=== PATIENT | male | born 1975 | race Caucasian/White ===

== ENCOUNTER → 2017-03-23 06:48 | Outpatient (CLI) | payer SELFPAY ==
--- NOTE | 2017-03-23 06:52 | CT_ITS ---
CT abdomen pelvis wo con CLINICAL INDICATION: Low back pain radiating into the pelvis, enlarged prostate. ORDERING PHYSICIAN: Zander Salinas MD PATIENT AGE: 42 years COMPARISON: None TECHNIQUE: Axial images obtained with sagittal and coronal reformats. PROCEDURE: Oral Contrast: None IV Contrast: None . FINDINGS: The lung bases are clear. The liver, gallbladder, spleen, adrenal glands, and pancreas are unremarkable. There is minimal ectasia of the right renal pelvis and ureter however a definite ureteral stone is not identified. The left kidney and ureter has an unremarkable appearance. No bladder calculi apparent. Unremarkable appendix. No evidence of diverticulitis. There are a few fluid-filled loops of small bowel in the mid and lower abdomen with a few scattered air-fluid levels and small bowel feces sign. No obvious bowel wall thickening. No intestinal obstruction or free air. No acute bony anomalies. IMPRESSION: 1. Minimal ectasia of the right renal collecting system which may be seen with a recently passed stone. Please correlate clinically. 2. Scattered air-fluid levels in the mid abdominal region with small bowel feces sign indicating delayed transit. Enteritis/ileus or partial obstruction is a consideration. If pain persists, consider follow-up with both IV and oral contrast.
== END ==
PROVIDERS: Family Provider Emergency Medicine; PCP Nurse Practitioner Family; Visit Provider Emergency Medicine
DX: R10.9 Unspecified abdominal pain (principal)
CPT/HCPCS: 74176

== ENCOUNTER → 2017-10-17 10:14 | Outpatient (CLI) | payer SELFPAY ==
--- NOTE | 2017-10-17 10:15 | CT_ITS ---
CT chest w con HISTORY: ITS.REASON: lung mass ORDERING PHYSICIAN: Maude Arora PATIENT AGE: 42 years COMPARISON: None TECHNIQUE: Axial images obtained following the administration of 75 mL of Isovue 370 . Sagittal, and coronal reformatted images are also generated and reviewed. All CT scans at the facility use one or more dose reduction, viz: automated exposure control, ma/kV adjustment per patient size (including targeted exams where dose is matched to indication, i.e. head), or iterative reconstruction technique. FINDINGS: The lower pole the left lobe of the thyroid gland is slightly large. There is slight increased soft tissue density within the anterior mediastinum consistent with residual finding tissue. No evidence of aortic aneurysm or dissection. No evidence of central pulmonary embolus. No mediastinal or hilar adenopathy. There are small nodes in the right hilum measuring up to 1.4 cm. There is a calcified granuloma in the left lower lobe anteriorly measuring 1 cm. Calcified nodes are present within the left hilum. There are minimal fibrotic changes or atelectatic changes within the lingula. No central obstructing lesion. No suspicious pulmonary nodules are evident. Upper abdominal images are unremarkable. No acute bony findings. IMPRESSION: 1. No suspicious pulmonary mass is evident. There is a calcified granuloma in the left lower lobe with calcified hilar lymph nodes. Lumbar disc disease. 2. No acute findings.
== END ==
PROVIDERS: Family Provider Emergency Medicine; PCP Nurse Practitioner Family; Visit Provider Nurse Practitioner Family
DX: R91.8 Other nonspecific abnormal finding of lung field (principal)
CPT/HCPCS: 71260; Q9967

== ENCOUNTER → 2021-01-25 14:45 | Outpatient (CLI) | payer SELFPAY ==
--- NOTE | 2021-01-25 14:51 | CT_ITS ---
PROCEDURE INFORMATION: Exam: CT Abdomen And Pelvis Without Contrast Exam date and time: 01/25/2021 2:51 PM Age: 45 years old Clinical indication: Abdominal pain; Localized; Right lower quadrant (rlq); Patient HX: Rlq pain; Additional info: Upper right stomach pain TECHNIQUE: Imaging protocol: Computed tomography of the abdomen and pelvis without contrast. Radiation optimization: All CT scans at this facility use at least one of these dose optimization techniques: automated exposure control; mA and/or kV adjustment per patient size (includes targeted exams where dose is matched to clinical indication); or iterative reconstruction. COMPARISON: [facility] abdomen pelvis wo con 03/23/2017 7:09 AM FINDINGS: Tubes, catheters and devices: None noted. Lungs: Lung bases appear clear. Heart: No significant coronary calcifications. No cardiomegaly. No significant pericardial effusion. Liver: Normal. No mass. Gallbladder and bile ducts: Normal. No calcified stones. No ductal dilation. Pancreas: Normal. No ductal dilation. Spleen: Calcified splenic granulomata. No splenomegaly. Adrenal glands: Normal. No mass. Kidneys and ureters: Normal. No hydronephrosis. Stomach and bowel: Unremarkable. No obstruction. No mucosal thickening. Appendix: Appendix is well visualized. Contrast is seen in the lumen. Diameter is 14 mm, however no significant inflammatory changes are detected. Appendix wall appears prominently thickened compared with previous study 03/23/2017. Intraperitoneal space: Unremarkable. No free air. No significant fluid collection. Retroperitoneal space: No significant retroperitoneal inflammatory changes are noted. Vasculature: Unremarkable. No abdominal aortic aneurysm. Lymph nodes: Unremarkable. No enlarged lymph nodes. Urinary bladder: Unremarkable as visualized. Reproductive: Unremarkable as visualized. Bones/joints: Disc space narrowing L3-L4. No acute fracture. Soft tissues: Unremarkable. IMPRESSION: 1. Prominent thickening of the appendix new since 03/23/2017. 2. Minimal inflammatory change around the appendix, however diameter is 14 mm suspicious for early acute appendicitis.
== END ==
PROVIDERS: PCP Nurse Practitioner Family; Visit Provider Nurse Practitioner Family
DX: R10.9 Unspecified abdominal pain (principal)
CPT/HCPCS: 74176

== ENCOUNTER 2021-01-25 18:22 | Observation (INO) | payer SELFPAY ==
[2021-01-25] VITALS (18 sets, daily range): BP systolic 112–136; BP diastolic 60–97; PULSE 80–98; RESP 16–20; TEMP 36.3–43; O2SAT 92–99; BMI 28.1; BMI 26.7
--- NOTE | 2021-01-25 18:36 | HMH.EDGENADL ---
ED Disposition Clinical Impression: Acute appendicitis Qualifiers: Acute appendicitis type: with localized peritonitis Appendicitis gangrene presence: without gangrene Appendicitis perforation presence: without perforation Appendicitis abscess presence: without abscess Qualified Code(s): K35.30 - Acute appendicitis with localized peritonitis, without perforation or gangrene Disposition: Still a Patient Condition on Discharge: Good Referrals: Maude Arora APRN [Primary Care Provider] - - Critical Care Critical Care Time: No Attestation: On 01/25/21, the high probability of a clinically significant, sudden or life threatening deterioration of the following system(s) required my full and direct attention, intervention and personal management. The time I documented below is in addition to time spent performing reported procedures but includes the following listed in this critical care notation. Medical Decision Making - Medical Records Medical records reviewed: Yes: I reviewed the patient's medical records. MR Comment: Reviewed results of outpatient CT scan abdomen pelvis, see below. Reviewed note from PCP visit today. - Jani Inquiry Pt receiving controlled substance: Yes Jani was queried for this patient: Yes Risks and benefits of using a controlled substance: were not discussed with pt by me Vital Signs: 01/25/21 18:33 Temperature 98.5 F Temperature Source Oral Pulse Rate [Right Brachial] 98 H Respiratory Rate 16 Blood Pressure [Right Arm] 128/79 Blood Pressure Mean [Right Arm] 95 Blood Pressure Source [Right Arm] Automatic Cuff Blood Pressure Position [Right Arm] Supine 02 Sat by Pulse Oximetry 97 Oxygen Delivery Method Room Air Orders (Tests/Meds): ED MEDICATIONS Discontinued Medications Generic Name Dose Route Start Last Admin Trade Name Freq PRN Reason Stop Dose Admin Morphine Sulfate 4 mg 01/25/21 18:42 Morphine 4mg/Ml Syringe IV 01/25/21 18:43 ONCE ONE Ondansetron HCl 4 mg 01/25/21 18:42 Ondansetron 4mg/2ml Vial IV 01/25/21 18:43 ONCE ONE Sodium Chloride 1,000 ml 01/25/21 18:42 Sodium Chloride 0.9% 1000ml Bag IV 01/25/21 18:43 BOLUS ONE ORDERS Category Date Time Status CMP [Comprehensive Metabolic Panel] Stat Lab 01/25/21 18:39 Ordered Complete Blood Count Auto Diff Stat Lab 01/25/21 18:39 Ordered Rapid PCR Covid and Flu A/B Stat Lab 01/25/21 18:39 Ordered - CT Data CT Scan: Abdomen, Pelvis Time Received: 18:[address] Reviewed: Yes: I have viewed the radiologist's interpretation Findings Narrative: Ordering Physician: Zackary Triana APRN Date of Service: 01/25/21 Procedure(s): CT abdomen pelvis wo con Accession Number(s): [id number] cc: Maude Arora APRN; Zackary Triana APRN; Daniel Najera MD~ ADDENDUM Addendum created by Daniel Najera MD on 01/25/2021 6:20:11 PM EST: THIS REPORT CONTAINS FINDINGS THAT MAY BE CRITICAL TO PATIENT CARE. The findings were verbally communicated via telephone conference with Dr Cabrales at 6:19 PM EST on 01/25/2021. The findings were acknowledged and understood. Initial report created on 01/25/2021 6:09:20 PM EST: PROCEDURE INFORMATION: Exam: CT Abdomen And Pelvis Without Contrast Exam date and time: 01/25/2021 2:51 PM Age: 45 years old Clinical indication: Abdominal pain; Localized; Right lower quadrant (rlq); Patient HX: Rlq pain; Additional info: Upper right stomach pain TECHNIQUE: Imaging protocol: Computed tomography of the abdomen and pelvis without contrast. Radiation optimization: All CT scans at this facility use at least one of these dose optimization techniques: automated exposure control; mA and/or kV adjustment per patient size (includes targeted exams where dose is matched to clinical indication); or iterative reconstruction. COMPARISON: [facility] CT abdomen pelvis wo con 03/23/2017 7:09 AM FINDINGS: Tubes, catheters and devices: None note
--- NOTE | 2021-01-25 18:40 | PC.NURSE ---
TAQUERIA WELLS speaking with Dr. Costa
--- NOTE | 2021-01-25 18:42 | PC.NURSE ---
dr covington spoke with dr hurst he wants OR team called in
--- NOTE | 2021-01-25 18:46 | PC.NURSE ---
184: SPOKE WITH Renetta CASTRO RN TO NOTIFY OF ACUTE APPENDICITIS IN ED. 1845: SPOKE WITH MARCOS PRESSLEY TO NOTIFY OF SURGERY. 1846: SPOKE WITH JODI ROLLWAY MAN TO NOTIFY HER OF SURGERY.
[2021-01-25 19:01] LABS: Coronavirus 19, PCR Not Detected (NotDetected); Influenza A, PCR Not Detected (NotDetected); Influenza B, PCR Not Detected (NotDetected)
[2021-01-25 19:02] LABS: Basophils # 0.1 K/mm3 (0-0.2); Basophils % 0.8 % (0.1-2.0); Eosinophils # 0.5 K/mm3 (0.0-0.4); Eosinophils % 5.4 % (0.1-12.0); Hematocrit 46.9 % (42.0-52.0); Hemoglobin 16.1 g/dL (14.1-18.0); Lymphocytes # 3.7 K/mm3 (0.7-4.5); Lymphocytes % 39.5 % (10-50); Mean Corpuscular HGB Conc 34.3 g/dL (31.8-35.4); Mean Corpuscular Hemoglobin 33.5 pg (27.0-31.2); Mean Corpuscular Volume 97.5 fl (80-94); Mean Platelet Volume 7.3 fl (7.4-10.4); Monocytes # 0.6 K/mm3 (0.1-1.0); Monocytes % 6.6 % (1.7-9.3); Neutrophils # 4.5 K/mm3 (1.8-7.8); Neutrophils % 47.6 % (37.0-80.0); Platelet Count 243 K/mm3 (142-424); Red Blood Count 4.81 M/mm3 (4.60-6.20); Red Cell Distribution Width 12.6 % (11.5-17.5); White Blood Count 9.5 K/mm3 (4.8-10.8)
--- NOTE | 2021-01-25 19:11 | PC.NURSE ---
Dr Costa at bedside
[2021-01-25 19:14] LABS: Chloride 104 mmol/L (98-107); Potassium 3.8 mmoL/L (3.5-5.1); Sodium 140 mmol/L (136-145)
[2021-01-25 19:16] LABS: Alanine Aminotransferase 21 U/L (12-78); Blood Urea Nitrogen 11 mg/dl (9-20); Creatinine Clearance Estimated 157 mL/min (50-200); Estimated Glomerular Filt Rate 121 ml/min (>60); GFR (African American) 147 ML/MIN (>60)
[2021-01-25 19:17] LABS: Albumin Level 4.3 g/dl (3.5-5.0); Albumin/Globulin Ratio 1.5 (1.1-1.8); Alkaline Phosphatase 69 U/L (38-126); Anion Gap 11.8 mEq/L (5-15); Aspartate Amino Transferase 26 U/L (17-59); Bilirubin,Total 0.3 mg/dl (0.2-1.3); Calcium 8.8 mg/dl (8.4-10.2); Carbon Dioxide 28 mmol/L (22.0-30.0); Globulin 2.9 g/dL (1.3-3.2); Glucose 95 mg/dl (74-100); Total Protein,Serum 7.2 g/dl (6.3-8.2)
--- NOTE | 2021-01-25 19:23 | HMH.GSHP ---
HPI HPI: Patient is a 45-year-old male. He states that for a couple of months he has had intermittent lower abdominal pain. However, yesterday it became quite severe in the right pelvic region. He was seen by his primary care provider and had an outpatient CT scan ordered. This revealed prominent thickening of the appendix with some minimal inflammatory changes around the appendix with appendiceal diameter of 14 mm consistent with noncomplicated acute appendicitis. [facility] History I have reviewed the patient's past medical history: Yes Medical History: Denies:: Cancer, Diabetes Mellitus Type 1, Diabetes Mellitus Type 2, MRSA *Have you ever received a pneumonia vaccine?: No *Have you received a flu vaccine this season?: No Other Surgeries: Yes: No Previous Surgery Amputation: No Fractures: No - *Social History Smoking Status: Current every day smoker Tobacco Type: cigars, smokeless tobacco Alcohol Intake: never Substance Use Type: denies use *Occupational Status:: unemployed Housing: house Household Members: family *Travel in the last 8 weeks: None Family Hx:: No significant family history Review of Systems - Review of Systems Review of systems:: pertinent systems reviewed and negative unless documented below Meds Home Medications Medication Instructions Recorded Confirmed Type No Known Home Medications 01/25/21 01/25/21 History Allergies Allergy/AdvReac Type Severity Reaction Status Date / Time No Known Allergies Allergy Verified 01/25/21 19:09 Exam Vital signs and Labs for Last 24 Hours: Temp Pulse Resp BP Pulse Ox 98.5 F 98 H 16 128/79 97 01/25/21 18:33 01/25/21 18:33 01/25/21 18:33 01/25/21 18:33 01/25/21 18:33 Laboratory Results - last 24 hr 01/25/21 18:51: WBC 9.5, RBC 4.81, Hgb 16.1, Hct 46.9, MCV 97.5 H, MCH 33.5 H, MCHC 34.3, RDW 12.6, Plt Count 243, MPV 7.3 L, Neut % (Auto) 47.6, Lymph % (Auto) 39.5, [place] % (Auto) 6.6, Eos % (Auto) 5.4, Baso % (Auto) 0.8, Neut # (Auto) 4.5, Lymph # (Auto) 3.7, [place] # (Auto) 0.6, Eos # (Auto) 0.5 H, Baso # (Auto) 0.1 I & O for Last 24 hours: Intake & Output 01/23/21 01/24/21 01/25/21 01/26/21 11:59 11:59 11:59 11:59 Weight 185 lb - Constitutional no acute distress - *Routine HEENT Exam Head: Present: normocephalic Eye: Present: EOMI, PERRL ENT: Present: mucous membranes moist - *Routine Neck Exam Present: supple. Absent: lymphadenopathy - *Routine Respiratory Exam Present: CTA bilaterally - *Routine Cardiovascular Exam Present: RRR - *Routine Abdominal Exam Present: soft, normoactive bowel sounds, tenderness Comments: Tender in the right pelvic area - *Routine Rectal Exam Rectal:: deferred - *Routine Genitalia Exam Genitalia:: deferred - *Routine Extremities Exam Absent: cyanosis, clubbing, edema - *Routine Skin Exam Present: warm. Absent: rash - *Routine Neurological Exam Present: alert, oriented X3 Results - Results Lab Results Last 24 Hours:: Laboratory Results - last 24 hr 01/25/21 18:51: WBC 9.5, RBC 4.81, Hgb 16.1, Hct 46.9, MCV 97.5 H, MCH 33.5 H, MCHC 34.3, RDW 12.6, Plt Count 243, MPV 7.3 L, Neut % (Auto) 47.6, Lymph % (Auto) 39.5, [place] % (Auto) 6.6, Eos % (Auto) 5.4, Baso % (Auto) 0.8, Neut # (Auto) 4.5, Lymph # (Auto) 3.7, [place] # (Auto) 0.6, Eos # (Auto) 0.5 H, Baso # (Auto) 0.1 Assessment and Plan - Assessment and plan all Dx Assessment and Plan for all problems:: Plan for laparoscopic with possibly open appendectomy
--- NOTE | 2021-01-25 19:31 | PC.NURSE ---
Patient transferred to surgery
--- NOTE | 2021-01-25 20:03 | P.PN_ITS ---
[facility] Anesthesia Checklist - Patient Identification Patient Identification: Arm Band - Structural Data Admitted From: Emergency Dept Planned Operative Procedure/s: Laparoscopic Appendectomy Consent for Planned Operative Procedure(s) Verified: Yes Verified Documents: Surgical Consent, History and Physical - NPO Status Verified Time NPO: 11:30 - Additional verifications Anesthesia Reactions: No - Airway Assessment C-Spine Mobility Assessed: Yes (mp2) TMJ Mobility Assessed: Yes Dentition: Good Dentition (lower. Upper Dentures removed) - Neurological Assessment Level of Consciousness: Awake, Alert - Anesthesia Plan Anesthesia Risk discussed: Yes Anesthesia Plan: Verified ASA Class: II (e) Anesthesia Type: General [facility] History I have reviewed the patient's past medical history: Yes Medical History: Denies:: Cancer, Diabetes Mellitus Type 1, Diabetes Mellitus Type 2, MRSA *Have you ever received a pneumonia vaccine?: No *Have you received a flu vaccine this season?: No Anesthesia experience/problems:: nac Other Surgeries: Yes: No Previous Surgery Amputation: No Fractures: No - *Social History Smoking Status: Current every day smoker Tobacco Type: cigars, smokeless tobacco Alcohol Intake: never Substance Use Type: denies use *Occupational Status:: unemployed Housing: house Household Members: family *Travel in the last 8 weeks: None Family Hx:: No significant family history
[2021-01-25 20:20] LABS: Microscopic,Cath URINE MICROSCOPIC (MICROSCOPIC)
--- NOTE | 2021-01-25 20:36 | HMH.OPNOTE ---
Date of procedure: 01/25/21 Pre-op Diagnosis:: Acute appendicitis Post-op Diagnosis:: Same Procedure performed:: Laparoscopic appendectomy Surgeon:: Wilver Costa MD ELECTRICIAN SUBSTATION:: Adan Zhou Anesthesia: GUILLAUME Estimated blood loss (mL): 15 Clinical Note:: Patient is a 45-year-old male. He states that for a couple of months he has had intermittent lower abdominal pain. However, yesterday it became quite severe in the right pelvic region. He was seen by his primary care provider and had an outpatient CT scan ordered. This revealed prominent thickening of the appendix with some minimal inflammatory changes around the appendix with appendiceal diameter of 14 mm consistent with noncomplicated acute appendicitis. Patient was instructed to present to the emergency department where he was evaluated and surgical consultation was obtained. Operative findings:: Patient had an acutely inflamed indurated slightly suppurative appendix. There were adhesions of the mesoappendix to the terminal ileum some of which appeared chronic. Operative note:: Patient was taken to the operating room. He was given preoperative intravenous antibiotics. In the operating room he was placed in a supine position. General anesthesia was induced via endotracheal tube. Kuhn catheter was placed. Abdomen was prepped and draped in the standard surgical fashion. Subumbilical skin incision was made while performing abdominal wall lift Veress needle was inserted. CO2 pneumoperitoneum was achieved to 15 mmHg. 12 mm optical trocar was inserted at the umbilicus. 5 mm trocar was inserted in the suprapubic location and an additional 5 mm trocar was inserted in the right upper abdomen. Patient was positioned in Trendelenburg left side down. Cecum was mobilized and retracted. Appendix was found to be markedly distended and indurated and somewhat tense. It was adherent in the right pelvic area and somewhat adherent to the terminal ileum. Some of these adhesions appeared chronic. Appendix was grasped and delivered anteriorly. The adhesions to terminal ileum epiploic fat or taken down with Metzenbaum dissection. The mesoappendix was carefully divided with BRIANNA ultrasonic harmonic remington with care taken to coagulate the appendiceal artery in the process. There were some retroperitoneal attachments laterally which were incised using BRIANNA ultrasonic robotic remington. Once dissection was carried down to the appendiceal base the appendix was divided at its base with an endoscopic MELVIN linear cutting stapling device. Appendix was placed within an Endo Catch retrieval device and removed from the peritoneal cavity via the umbilical trocar site which required minor extension of the fascial incision for delivery of the thickened distended appendix. Pelvis and pericecal region were irrigated and aspirated until clear. Trochars were removed as CO2 pneumoperitoneum was evacuated. Fascia at the umbilicus was closed with a couple of 0 Vicryl sutures. Local anesthetic was infiltrated. Skin incisions were closed with 4-0 Monocryl in a subcuticular fashion. Steri-Strips and dressings were applied. Condition: stable Disposition: PACU Specimens:: Appendix Complications:: None immediately apparent
--- NOTE | 2021-01-25 20:47 | P.PN_ITS ---
[facility] Anesthesia Record Part I Intake, IV Amount: 1,300 Estimated blood loss (mL): 10 Urine output (mL): 400 Blood Pressure: 130/78 SaO2: 92 Pulse Rate: 89 Respiratory Rate: 16 Temperature: 97.9 F Patient is:: Drowsy, Stable Stable to PACU at:: 20:40
[2021-01-25 21:08] LABS: Appearance,Urine/Cath CLEAR (Clear); Bilirubin,Cath Negative (Negative); Blood, Urine/Cath Negative (Negative); Color,Urine/Cath YELLOW (Yellow); Glucose,Urine/Cath (UA) Negative (Negative); Ketones,Urine/Cath Negative (Negative); Leukocyte Esterase,Cath Negative (Negative); Nitrate,Cath Negative (Negative); PH,Urine/Cath 6.5 (5.0-8.5); Protein,Urine/Cath Negative (Negative); Specific Gravity, Urine/Cath 1.015 (1.005-1.030); Urobilinogen,Cath 0.2 EU/dl (0.2)
--- NOTE | 2021-01-25 21:13 | PC.NURSE ---
Pt arrived to the floor via stretcher at this time.
--- NOTE | 2021-01-25 21:17 | SUR.PHASEI ---
2107-detailed report called to ABRAN Steiner 2109-pt transported to 2nd floor room 207 via stretcher w/yury rails up and left in care of ABRAN Steiner with bed locked in lowes position, s, pt stable
[2021-01-25 21:37] LABS: WBC,Urine/Cath Occasional #/hpf (0-3)
[2021-01-25 21:38] LABS: Bacteria,Urine/Cath TRACE /lpf
[2021-01-26 00:21] VITALS: BP 120/67; PULSE 87; RESP 18; TEMP 36.6; O2SAT 97
[2021-01-26 01:21] VITALS: BP 118/62; PULSE 85; RESP 18; TEMP 37; O2SAT 97
[2021-01-26 02:21] VITALS: BP 118/62; PULSE 85; RESP 20; TEMP 36.6; O2SAT 96
[2021-01-26 03:21] VITALS: BP 117/71; PULSE 85; RESP 20; TEMP 37; O2SAT 94
[2021-01-26 04:21] VITALS: BP 113/71; PULSE 104; RESP 20; TEMP 36.6; O2SAT 95
[2021-01-26 04:52] VITALS: BMI 26.7
--- NOTE | 2021-01-26 05:42 | PC.NURSE ---
Pt has rested thus far in shift. Incision sites on abdomen are C/D/I. Pt c/o of pain x1 this shift, admin meds per MAR with relief. Pt has ambulated to bathroom with standby assist and tolerated well. No concerns at this time.
--- NOTE | 2021-01-26 06:32 | HMH.GSPN ---
Subjective Narrative: Doing well. Some soreness. Progress Note: A&P Assessment and Plan for All Diagnoses:: Advance diet. Possible discharge home later today after next dose of antibiotics after 10:00. Exam Vital signs and Labs for Last 24 Hours: Temp Pulse Resp BP Pulse Ox 97.9 F 104 H 20 113/71 95 01/26/21 04:21 01/26/21 04:21 01/26/21 04:21 01/26/21 04:21 01/26/21 04:21 Laboratory Results - last 24 hr 01/25/21 18:42: SARS-CoV-2 (PCR) Not detected, Influenza A Untype (PCR) Not detected, Influenza Type B (PCR) Not detected 01/25/21 18:50: Sodium 140, Potassium 3.8, Chloride 104, Carbon Dioxide 28, Anion Gap 11.8, BUN 11, Creatinine 0.70, Estimated Creat Clear 157, Estimated GFR 121, Est GFR ( Amer) 147, Glucose 95, Calcium 8.8, Total Bilirubin 0.3, AST 26, ALT 21, Alkaline Phosphatase 69, Total Protein 7.2, Albumin 4.3, Globulin 2.9, Albumin/Globulin Ratio 1.5 01/25/21 18:50: Urine Color Yellow, Urine Appearance Clear, Urine pH 6.5, Ur Specific [place] 1.015, Urine Protein Negative, Urine Glucose (UA) Negative, Urine Ketones Negative, Urine Blood Negative, Urine Nitrate Negative, Urine Bilirubin Negative, Urine Urobilinogen 0.2, Ur Leukocyte Esterase Negative, Urine RBC None, Urine WBC Occasional, Ur Squamous Epith Cells None, Urine Bacteria Trace 01/25/21 18:51: WBC 9.5, RBC 4.81, Hgb 16.1, Hct 46.9, MCV 97.5 H, MCH 33.5 H, MCHC 34.3, RDW 12.6, Plt Count 243, MPV 7.3 L, Neut % (Auto) 47.6, Lymph % (Auto) 39.5, [place] % (Auto) 6.6, Eos % (Auto) 5.4, Baso % (Auto) 0.8, Neut # (Auto) 4.5, Lymph # (Auto) 3.7, [place] # (Auto) 0.6, Eos # (Auto) 0.5 H, Baso # (Auto) 0.1 I & O for Last 24 hours: Intake & Output 01/23/21 01/24/21 01/25/21 01/26/21 11:59 11:59 11:59 11:59 Intake Total 1300 / 1300 Output Total 0 / 0 Balance 1300 / 1300 Weight 176 lb 7 oz - *Routine Abdominal Exam Present: soft
[2021-01-26 08:00] VITALS: BP 110/77; PULSE 88; RESP 14; TEMP 36.8; O2SAT 96
--- NOTE | 2021-01-26 10:19 | HMH.PHAVTE ---
[facility] Pharmacy VTE Monitoring - Patient Demographics Admission date: 01/26/21 Report Date: 01/26/21 Time: 10:19 Allergies/Adverse Reactions: Patient Allergies No Known Allergies Allergy (Verified 01/25/21 21:56) Height: 1.73 m Weight: 80.031 kg Patient Problems: Current Active Problems Acute appendicitis (Acute) - VTE Risk Labs: VTE Related Lab Results Hgb 16.1 g/dL (14.1-18.0) 01/25/21 18:51 Hct 46.9 % (42.0-52.0) 01/25/21 18:51 Plt Count 243 K/mm3 (142-424) 01/25/21 18:51 BUN 11 mg/dl (9-20) 01/25/21 18:50 Creatinine 0.70 mg/dl (0.66-1.25) 01/25/21 18:50 Estimated Creat Clear 157 mL/min (50-200) 01/25/21 18:50 Clinical Trial Participant: No - Prophylaxis Types of VTE Prophylaxis: TEDS Knee High
--- NOTE | 2021-01-26 10:35 | [facility].HPDC ---
General - General Admission date:: 01/25/21 Discharge date: 01/26/21 *Admission Date: 01/26/21 *Chief complaint: abd pain *History of present illness: 45-year-old male. He states that for a couple of months he has had intermittent lower abdominal pain. However, yesterday it became quite severe in the right pelvic region. He was seen by his primary care provider and had an outpatient CT scan ordered. This revealed prominent thickening of the appendix with some minimal inflammatory changes around the appendix with appendiceal diameter of 14 mm consistent with noncomplicated acute appendicitis-per surgery [facility] History I have reviewed the patient's past medical history: Yes Medical History: Denies:: Cancer, Diabetes Mellitus Type 1, Diabetes Mellitus Type 2, MRSA *Have you ever received a pneumonia vaccine?: No *Have you received a flu vaccine this season?: No Anesthesia experience/problems:: nac Other Surgeries: Yes: No Previous Surgery, Appendectomy Amputation: No Fractures: No - *Social History Smoking Status: Current every day smoker Tobacco Type: cigars, smokeless tobacco # Packs/Day (cigarettes): 2 Alcohol Intake: never Substance Use Type: denies use *Occupational Status:: unemployed Housing: house Household Members: spouse, children *Travel in the last 8 weeks: None Family Hx:: Unable to obtain Review of Systems - Review of Systems Review of systems:: pertinent systems reviewed and negative unless documented below - Constitutional Denies body ache(s), Denies fatigue, Denies weakness - Eyes Denies blurry vision - ENT Denies bleeding gums - *Cardiovascular Denies chest pain, Denies chest pain at rest - *Respiratory Denies change in phlegm color - *Gastrointestinal Reports abdominal pain, Reports bloating, Reports change in bowel habits - *Genitourinary Denies difficulty urinating - *Musculoskeletal Denies abnormal walking - Integumentary/Breasts Denies hair loss - *Neurologic Denies abnormal hearing - Psychiatric Denies abnormal sleep pattern - Endocrine Denies excessive sweating - Hematologic/Lymphatic Denies easy bruising - Allergic/Immunologic Denies GI upset with certain foods Exam Vital signs and Labs for Last 24 Hours: Temp Pulse Resp BP Pulse Ox 98.3 F 88 14 110/77 96 01/26/21 08:00 01/26/21 08:00 01/26/21 08:00 01/26/21 08:00 01/26/21 08:00 Laboratory Results - last 24 hr 01/25/21 18:42: SARS-CoV-2 (PCR) Not detected, Influenza A Untype (PCR) Not detected, Influenza Type B (PCR) Not detected 01/25/21 18:50: Sodium 140, Potassium 3.8, Chloride 104, Carbon Dioxide 28, Anion Gap 11.8, BUN 11, Creatinine 0.70, Estimated Creat Clear 157, Estimated GFR 121, Est GFR ( Amer) 147, Glucose 95, Calcium 8.8, Total Bilirubin 0.3, AST 26, ALT 21, Alkaline Phosphatase 69, Total Protein 7.2, Albumin 4.3, Globulin 2.9, Albumin/Globulin Ratio 1.5 01/25/21 18:50: Urine Color Yellow, Urine Appearance Clear, Urine pH 6.5, Ur Specific [place] 1.015, Urine Protein Negative, Urine Glucose (UA) Negative, Urine Ketones Negative, Urine Blood Negative, Urine Nitrate Negative, Urine Bilirubin Negative, Urine Urobilinogen 0.2, Ur Leukocyte Esterase Negative, Urine RBC None, Urine WBC Occasional, Ur Squamous Epith Cells None, Urine Bacteria Trace 01/25/21 18:51: WBC 9.5, RBC 4.81, Hgb 16.1, Hct 46.9, MCV 97.5 H, MCH 33.5 H, MCHC 34.3, RDW 12.6, Plt Count 243, MPV 7.3 L, Neut % (Auto) 47.6, Lymph % (Auto) 39.5, [place] % (Auto) 6.6, Eos % (Auto) 5.4, Baso % (Auto) 0.8, Neut # (Auto) 4.5, Lymph # (Auto) 3.7, [place] # (Auto) 0.6, Eos # (Auto) 0.5 H, Baso # (Auto) 0.1 I & O for Last 24 hours: Intake & Output 01/23/21 01/24/21 01/25/21 01/26/21 11:59 11:59 11:59 11:59 Intake Total 1660 / 1660 Output Total 0 / 0 Balance 1660 / 1660 Weight 176 lb 7 oz - Constitutional no acute distress - *Routine HEENT Exam Head: Present: normocephalic Eye: Present: PERRL
--- NOTE | 2021-01-27 07:40 | P.PN_ITS ---
[facility] Anesthesia Record Part II Discharge Time: 21:10 Destination: Medical Surgical Department PACU nurse assessment reviewed?: Yes Patient Condition:: Good Anesthesia Complications:: None Swallowing reflex intact?: Yes Cyanosis?: No Blood Pressure: 121/88 Pulse Rate: 89 Temperature: 97.4 F Mental Status: Alert & Oriented Pain level:: 0 Nausea and/or vomitting:: None Intake, IV Amount: 0
[2021-01-27 07:41] VITALS: BP 121/88; PULSE 89; TEMP 36.3
== END 2021-01-26 12:40 | disposition home or self-care (01) ==
LOC: ER 18:44 → 2ND 18:59
PROVIDERS: Surgery; Admitting Provider Family Medicine; Emergency Provider Emergency Medicine; PCP Nurse Practitioner Family; Visit Provider Family Medicine
PROC: 0DTJ4ZZ Resection of Appendix, Percutaneous Endoscopic Approach (ICD-10-PCS; CPT 44970; principal; 2021-01-25 19:30)
DX: K35.80 Unspecified acute appendicitis (principal); Z20.822 Contact with and (suspected) exposure to COVID-19; F17.290 Nicotine dependence, other tobacco product, uncomplicated
CPT/HCPCS: 44970; 80053; 81001; 85025; 94760; 94761; 96374; 96375; 99281; C9803; G0378; J2405; J2710; U0003; U0005